=== PATIENT | female | born 1985 | race African-American/Black ===

== ENCOUNTER 2020-05-31 09:53 | Emergency (ER) | payer OTHER ==
[2020-05-31] MEDS ORDERED: CONCCAP2 PO (10:05)
[2020-05-31] MEDS ORDERED: METO5TAB2 PO (10:06)
[2020-05-31 10:54] LABS: HEMATOCRIT 34.5 % (36.0-47.0); HEMOGLOBIN 11.7 g/dl (12.0-15.5); MEAN CORPUSCULAR HEMOGLOBIN 30.9 pg (27.0-33.0); MEAN CORPUSCULAR HGB CONC 33.9 g/dl (32.0-36.5); PLATELET COUNT, AUTOMATED 244 10^3/uL (150-450); RED BLOOD COUNT 3.79 10^6/uL (4.00-5.40); WHITE BLOOD COUNT 5.9 10^3/uL (4.0-10.0)
[2020-05-31] MEDS ORDERED: NS 1,000 ML IV ONE (11:30)
[2020-05-31] MEDS ORDERED: RHOGAM 300 MCG (1500 IU) INJ (J2790) IM ONE (11:45)
--- NOTE | 2020-05-31 11:52 | REP ---
LIMITED OB ULTRASOUND: 05/31/2020. Clinical history: Second trimester vaginal bleeding. Findings: No prior study. There is a single intrauterine gestation in breech position. An anterior right lateral placenta without previa and inferiorly in abruption measuring 3.24 x 3.2 x 0.8 cm. Cervix has a length of 3.2 cm. heart activity noted at 149. The amniotic fluid volume is visually normal. No evidence of a nuchal cord. Impression: 1. Single intrauterine gestation in breech position with heart rate 149 and a closed 3.2 cm long cervix. 2. Anterior right lateral placenta, grade 0 maturation characteristics with placenta previa and an inferior abruption fluid collection 3.4 x 3.2 x 0.8 cm. 3. Amniotic fluid volume visually normal. No evidence of a nuchal cord. Electronically Signed by Azael Correa MD 05/31/2020 11:44 A
[2020-05-31 13:48] VITALS: BP 119/66
--- NOTE | 2020-06-01 06:44 | ED PDOC ---
Post-Departure Follow-Up dr aiken faxed formal report of ob us for fu Kenton Valdovinos MD Jun 01, 2020 06:44
--- NOTE | 2020-06-04 13:20 | ED PDOC ---
Post-Departure Follow-Up Called pt and voicemail left to have her return call. Need patient to come to [facility] to obtain consent for the products of conception sent. Leroy left voicemail to have pt call the hospital back ELISSA HERNANDEZ PA-C Jun 04, 2020 13:20
[2020-08-18 12:46] LABS: CHROMPC1 SEE SEPARATE REPORT
== END 2020-05-31 13:50 | disposition home or self-care (01) ==
LOC: M ED 09:53
DX: O44.12 Complete placenta previa with hemorrhage, second trimester (principal); Z3A.15 15 weeks gestation of pregnancy
CPT/HCPCS: 76815; 80047; 84702; 85027; 86850; 86870; 86901; 88233; 88262; 88291; 96360; 96361; 96372; 99284; J2790

== ENCOUNTER → 2020-06-11 | Outpatient (CLI) | payer OTHER ==
[~2020-06-11] MED LIST: CONCCAP2 PO; METO5TAB2 PO
--- NOTE | 2020-06-11 16:36 | REP ---
Clinical: Anatomical evaluation. Comparison: 05/31/2020 . Findings: Examination demonstrates a single live intrauterine in mobile presentation. motion is identified by technologist. Placenta is noted anterior/right lateral and grade zero without evidence for placenta previa or abruption. Amniotic fluid volume is normal. Cervix measures 3.9 cm in length and appears closed. Subchorionic hemorrhage again identified measuring 38 x 21 x 27 mm. Gestational age by LMP 14 weeks 5 days with JINNY 12/05/2020 . Gestational age by current measurements 16 weeks 1 day with JINNY 11/25/2020 . FHR equals 156 beats per minute. Estimated weight by current biometrical measurements 144 grams Impression: 1. Single live intrauterine in mobile presentation with biometrical measurements currently measuring at 16 weeks 1 day gestational age. 2. Moderate subchorionic hemorrhage again identified anterior to the cervix. Electronically Signed by Harshad Ochoa MD 06/11/2020 04:28 P
== END ==
LOC: M WHC 15:15
PROVIDERS: ATTEND Advanced Practice Midwife
DX: O36.80X0 Pregnancy with inconclusive fetal viability, not applicable or unspecified (principal); Z3A.16 16 weeks gestation of pregnancy

== ENCOUNTER → 2020-08-14 | Outpatient (CLI) | payer OTHER ==
[2020-08-14 15:02] LABS: HEMATOCRIT 30.9 % (36.0-47.0); HEMOGLOBIN 10.1 g/dl (12.0-15.5); MEAN CORPUSCULAR HEMOGLOBIN 32.2 pg (27.0-33.0); MEAN CORPUSCULAR HGB CONC 32.7 g/dl (32.0-36.5); MEAN CORPUSCULAR VOLUME 98.4 fl (80.0-96.0); PLATELET COUNT, AUTOMATED 240 10^3/uL (150-450); RED BLOOD COUNT 3.14 10^6/uL (4.00-5.40)
== END ==
LOC: M LAB 13:15
PROVIDERS: ATTEND Obstetrics & Gynecology
DX: Z34.02 Encounter for supervision of normal first pregnancy, second trimester (principal); Z3A.00 Weeks of gestation of pregnancy not specified

== ENCOUNTER → 2020-10-21 | Outpatient (REF) | payer OTHER ==
[~2020-10-21] MED LIST changes: +ACET-907 PO
== END ==
LOC: M LAB REF 11:58
PROVIDERS: ATTEND Obstetrics & Gynecology
DX: Z34.83 Encounter for supervision of other normal pregnancy, third trimester (principal); Z3A.00 Weeks of gestation of pregnancy not specified

== ENCOUNTER 2020-10-26 17:51 | Outpatient (CLI) | payer OTHER ==
[~2020-10-26] VITALS: Ht 203.2 cm; Wt 99.1 kg
[~2020-10-26 17:51] MED LIST changes: -ACET-907 PO
[2020-10-26 18:11] VITALS: BP 116/71
[2020-10-26] MEDS ORDERED: ACET-907 PO (18:21)
[2020-10-26] MEDS ORDERED: ACETAMINOPHEN TAB 650MG DOSE (2X325MG) PO ONE (19:00)
[2020-10-26 19:08] VITALS: BP 104/59
[2020-10-26 20:00] VITALS: BP 121/74
[2020-10-26 20:20] LABS: APPEARANCE, URINE CLEAR (CLEAR); BACTERIA, URINE AUTO NEGATIVE (NEGATIVE); BILIRUBIN, URINE AUTO NEGATIVE (NEGATIVE); BLOOD, URINE BLOOD NEGATIVE (NEGATIVE); COLOR, URINE STRAW (YELLOW); GLUCOSE, URINE (UA) AUTO NEGATIVE (NEGATIVE); KETONE, URINE AUTO NEGATIVE (NEGATIVE); LEUKOCYTE ESTERASE, URINE AUTO NEGATIVE (NEGATIVE); NITRITE, URINE AUTO NEGATIVE (NEGATIVE); PROTEIN, URINE AUTO NEGATIVE (NEGATIVE); RBC, URINE AUTO 0 /HPF (0-3); SPECIFIC GRAVITY URINE AUTO 1.003 (1.002-1.035); SQUAMOUS EPITHELIAL CELL UR AU 1 /HPF (0-6); UROBILINOGEN, URINE AUTO 0.2 mg/dL (0.0-2.0); WBC, URINE AUTO 0 /HPF (0-3)
[2020-10-26] MEDS ORDERED: PERCOCET 5MG/325MG TAB PO ONE (20:30)
[2020-10-26 21:02] VITALS: BP 115/70
== END 2020-10-26 21:05 | disposition home or self-care (01) ==
LOC: M LDO 17:51
PROVIDERS: ATTEND Obstetrics & Gynecology
DX: O26.893 Other specified pregnancy related conditions, third trimester (principal); R51.9 Headache, unspecified; Z3A.35 35 weeks gestation of pregnancy

== ENCOUNTER → 2020-11-11 | Outpatient (CLI) | payer OTHER ==
[~2020-11-11] MED LIST changes: +ACET-907 PO
--- NOTE | 2020-11-11 09:36 | REP ---
INDICATION: BREECH PRESENTATION COMPARISON: 06/11/2020 TECHNIQUE: Transabdominal obstetrical ultrasound with color Doppler evaluation. FINDINGS: Examination demonstrates a single live intrauterine in cephalic presentation. motion is identified by technologist. Placenta is noted anterior and grade 3 without evidence for placenta previa or abruption. Amniotic fluid volume is normal. JESSICA: 18.5 cm (7.3-23.9) heart rate: 149 beats per minute Umbilical artery SD ratio: 2.56 (1.55-3.36) IMPRESSION: Single live advanced gestation in cephalic presentation. Amniotic fluid index is within normal limits. <Electronically signed by Harshad Ochoa > 11/11/20 0915
== END ==
LOC: M RAD 08:11
PROVIDERS: ATTEND Obstetrics & Gynecology
DX: O32.1XX0 Maternal care for breech presentation, not applicable or unspecified (principal); Z3A.00 Weeks of gestation of pregnancy not specified

== ENCOUNTER → 2020-11-26 | Outpatient (CLI) | payer OTHER ==
[~2020-11-26] MED LIST changes: +DOK1CAP7 PO; +FERR325T3 PO; +IBUP80TA PO; +PERCOCET PO
== END ==
LOC: M LABSMTC 11:01
PROVIDERS: ATTEND Anesthesiology
DX: Z20.822 Contact with and (suspected) exposure to COVID-19 (principal)

== ENCOUNTER 2020-11-27 06:41 | Inpatient (IN) | payer OTHER ==
[~2020-11-27] VITALS: Ht 157.5 cm; Wt 99.7 kg
[2020-11-27] VITALS (7 sets, daily range): BP systolic 108–126; BP diastolic 57–76
[~2020-11-27 06:41] MED LIST changes: -DOK1CAP7 PO; -FERR325T3 PO; -IBUP80TA PO; -PERCOCET PO; +ceFAZolin SOD 2 GM in IV 1 EA IV ONE
[2020-11-27] MEDS ORDERED: LR 1,000 ML IV SCH (07:30)
[2020-11-27] MEDS ORDERED: BICITRA 30ML SOLN UDC PO ONE (07:30)
[2020-11-27] MEDS ORDERED: LR 1,000 ML IV ONE (07:30)
[2020-11-27 08:16] LABS: HEMATOCRIT 30.2 % (36.0-47.0); HEMOGLOBIN 9.5 g/dl (12.0-15.5); MEAN CORPUSCULAR HEMOGLOBIN 29.3 pg (27.0-33.0); MEAN CORPUSCULAR HGB CONC 31.5 g/dl (32.0-36.5); MEAN CORPUSCULAR VOLUME 93.2 fl (80.0-96.0); PLATELET COUNT, AUTOMATED 233 10^3/uL (150-450); RED BLOOD COUNT 3.24 10^6/uL (4.00-5.40); WHITE BLOOD COUNT 5.5 10^3/uL (4.0-10.0)
[2020-11-27] MEDS ORDERED: ePHEDrine SULFATE 25 MG/5 ML(5MG/ML) SYRINGE As Ordered ONE (09:09)
[2020-11-27] MEDS ORDERED: MORPHINE PRES-FREE INJ 10 MG/10 ML VIAL (J2274) As Ordered ONE (09:09)
[2020-11-27] MEDS ORDERED: OXYTOCIN 30 UNITS IN 0.9% NaCl 500ML IV BAG (J2590) As Ordered ONE ×2 (09:09→10:45)
[2020-11-27] MEDS ORDERED: PHENYLephrine 500MCG 5ML (100MCG/ML) SYRINGE As Ordered ONE (09:09)
[2020-11-27] MEDS ORDERED: KETOROLAC 60MG 2ML VIAL As Ordered ONE (09:17)
[2020-11-27] MEDS ORDERED: ONDANSETRON 4MG/2ML VIAL As Ordered ONE (09:17)
[2020-11-27] MEDS ORDERED: diphenhydrAMINE 50MG/ML VIAL (J1200) IV PRN (09:44)
[2020-11-27] MEDS ORDERED: ONDANSETRON 4MG/2ML VIAL IV PRN ×2 (09:44→10:45)
[2020-11-27] MEDS ORDERED: NALBUPHINE HCL 10 MG/ML AMP (J2300) IV PRN (09:44)
[2020-11-27] MEDS ORDERED: METOCLOPRAMIDE INJ 10MG/2ML VIAL (J2765 PER 1) IV PRN (09:44)
[2020-11-27] MEDS ORDERED: NALOXONE INJ 0.4MG/1ML VIAL (J2310 PER 1MG) IV PRN ×2 (09:44)
[2020-11-27 10:07] LABS: CORD GAS ABE V -2.3; CORD GAS HCO3 V 23.3 MEQ/L; CORD GAS O2 SAT V 88.8 %; CORD GAS PCO2 V 42.7 mmHg; CORD GAS PH V 7.354 UNITS; CORD GAS PO2 V 44.6 mmHg; CORD GAS SBC V 22.4 MEQ/L; CORD GAS TCO2 V 24.6 MEQ/L
[2020-11-27 10:09] LABS: CORD GAS ABE A -6.6; CORD GAS HCO3 A 19.6 MEQ/L; CORD GAS O2 SAT A 70.7 %; CORD GAS PCO2 A 41.6 mmHg; CORD GAS PH A 7.291 UNITS; CORD GAS PO2 A 34.4 mmHg; CORD GAS SBC A 18.6 MEQ/L; CORD GAS TCO2 A 20.9 MEQ/L
[2020-11-27] MEDS ORDERED: OXYTOCIN DRIP 30 UNITS in IV 1 EA IV SCH (10:31)
[2020-11-27] MEDS ORDERED: fentaNYL 100 MCG/2 ML INJECTION (J3010) As Ordered ONE (10:43)
[2020-11-27] MEDS ORDERED: oxyCODONE 5MG TAB PO PRN (10:45)
[2020-11-27] MEDS ORDERED: RHOGAM 300 MCG (1500 IU) INJ (J2790) IM SCH (10:45)
[2020-11-27] MEDS ORDERED: MEASLES,MUMPS,RUBELLA VACCINE INJ (MMR-II) (90707) SC SCH (10:45)
[2020-11-27] MEDS ORDERED: MOM 30ML SUSPENSION UDC PO PRN (10:45)
[2020-11-27] MEDS: fentaNYL 100 MCG/2 ML INJECTION (J3010) IV PRN ×2 (10:45→10:57)
--- NOTE | 2020-11-27 13:35 | RO ---
OPERATIVE NOTE DATE OF OPERATION: 11/27/2020 Mirna is a 35-year-old female who is postdates, refusing an induction. She requested delivery by primary section. PREOPERATIVE DIAGNOSIS: Postdates, requesting primary section. POSTOPERATIVE DIAGNOSIS: Postdates, requesting primary section. PROCEDURE: Primary low transverse section via Pfannenstiel incision. ANESTHESIA: Spinal. SURGEON: Jackson Lowe DO SHIPWRIGHT: Dr. Payne COMPLICATIONS: None. ESTIMATED BLOOD LOSS: 400 mL. FINDINGS: Live male in occiput transverse position, 9/9; weight 8 pounds. Normal-appearing tubes and ovaries. Placenta removed manually. PROCEDURE: After obtaining informed consent, the patient was taken to the operating room. Once spinal anesthetic was found to be adequate, she was then draped and prepped in the usual sterile fashion in the supine position. At this point a Pfannenstiel incision was made, this was carried down to the fascia. The fascia was incised in the midline fashion and carried through laterally. The superior aspect of the fascia was then grasped with a Jah clamp and tented off and dissected off the rectus muscles sharply. The inferior aspect was dissected off in a similar fashion. Rectus muscles were in midline fashion. Peritoneum identified. Peritoneal cavity entered bluntly. Superior and inferior dissection of the peritoneum was then done with good visualization of the bladder. At this point, a Mobius skin retractor was placed. A low transverse uterine incision was made. The infant was delivered in atraumatic fashion. The nose and mouth bulb suctioned, the cord doubly clamped and cut and was handed over to the waiting warmer. Cord blood and cord gas was sent. Placenta removed manually. Uterus cleared of all clots and debris and the uterine incision was then repaired in two separate layers of 0 Vicryl suture. All superficial bleeders coagulated. The skin was reapproximated in subcuticular fashion using 3-0 Vicryl on a Nathaniel. Steri-Strips placed. The patient tolerated the procedure well. She was then transferred to the recovery room in stable condition. cc: [facility]
[2020-11-27] MEDS: KETOROLAC 30 MG/ML 1ML VIAL IV SCH ×2 (16:34→22:29)
[2020-11-27] MEDS: DOCUSATE SODIUM 100MG CAPSULE PO SCH (22:29)
[2020-11-28 02:00] VITALS: BP 108/64
[2020-11-28] MEDS: KETOROLAC 30 MG/ML 1ML VIAL IV SCH ×2 (04:00→04:53)
[2020-11-28 06:00] VITALS: BP 120/75
[2020-11-28] MEDS: IBUPROFEN 800 MG TAB PO SCH ×3 (06:07→21:58)
--- NOTE | 2020-11-28 07:05 | IPNPDOC ---
Progress Note Date of Service: Nov 28, 2020 Day#: 1 Progress Note SUBJECT: Doing well without complaints. Ambulating, has been unable to void. Garcia catheter replaced this morning. Pain is well-controlled. Reports minimal lochia. OBJECTIVE: VITAL SIGNS: Within normal limits, afebrile. Alert and oriented times three. Abdomen: Fundus firm at U-2. Soft, NTTP. Incision: Clean dry intact nonerythematous well approximated Ext: neg calf tenderness. ASSESSMENT: /postoperative day #1 status post delivery. Recovering in stable condition. PLAN: 1. Continue routine /postoperative care 2. Discharge plans for tomorrow VS, I&O, 24H, Fishbone Vital Signs/I&O Vital Signs Date Time Temp Pulse Resp B/P (MAP) Pulse Ox O2 Delivery O2 Flow Rate FiO2 11/28/20 02:00 97.9 87 16 108/64 (79) 99 Room Air I&O- Last 24 Hours up to 6 AM 11/28/20 06:00 Intake Total 1625 ml Output Total 4200 ml Balance -2575 ml Laboratory Data 24H LABS Laboratory Tests 2 11/27/20 07:42: Nucleated Red Blood Cells % (auto) 0.0, Syphilis Serology NONREACTIVE, Hepatitis B Surface Antigen NEGATIVEL 11/27/20 09:58: Cord Arterial Blood pH 7.291, Cord Arterial Blood PCO2 41.6, Cord Arterial Blood PO2 34.4, Cord Arterial Blood HCO3 19.6, Cord Arterial Blood Total CO2 20.9, Cord Arterial Blood Base Excess -6.6, Cord Arterial Base Excess (Standard 18.6, Cord Arterial Bld Oxygen Saturation 70.7, Cord Venous Blood pH 7.354, Cord Venous Blood PCO2 42.7, Cord Venous Blood PO2 44.6, Cord Venous Blood HCO3 23.3, Cord Venous Blood Total CO2 24.6, Cord Venous Base Excess (Actual) -2.3, Cord Venous Base Excess (Standard) 22.4, Cord Venous Blood Oxygen Saturation 88.8 11/27/20 12:35: Serology Scanned Report Hepatitis B Testing CBC/BMP Laboratory Tests 11/27/20 07:42 KIRA NICOLAS MD. Nov 28, 2020 07:05
[2020-11-28] MEDS: DOCUSATE SODIUM 100MG CAPSULE PO SCH ×2 (08:09→21:58)
[2020-11-28] MEDS: PRENATAL VITAMINS CHEWABLE TABLET PO SCH (08:09)
[2020-11-28 08:45] LABS: HEMATOCRIT 26.7 % (36.0-47.0); HEMOGLOBIN 8.3 g/dl (12.0-15.5); MEAN CORPUSCULAR HEMOGLOBIN 30.2 pg (27.0-33.0); MEAN CORPUSCULAR HGB CONC 31.1 g/dl (32.0-36.5); MEAN CORPUSCULAR VOLUME 97.1 fl (80.0-96.0); PLATELET COUNT, AUTOMATED 205 10^3/uL (150-450); RED BLOOD COUNT 2.75 10^6/uL (4.00-5.40); WHITE BLOOD COUNT 9.1 10^3/uL (4.0-10.0)
[2020-11-28 10:00] VITALS: BP 138/63
[2020-11-28] MEDS: PERCOCET 5MG/325MG TAB PO PRN ×2 (12:53→19:44)
[2020-11-28 14:00] VITALS: BP 109/53
[2020-11-28 18:16] VITALS: BP 113/66
[2020-11-28 22:00] VITALS: BP 108/65
[2020-11-29 02:00] VITALS: BP 102/57
[2020-11-29 06:00] VITALS: BP 99/57
[2020-11-29] MEDS: IBUPROFEN 800 MG TAB PO SCH (06:46)
--- NOTE | 2020-11-29 08:10 | IPNPDOC ---
Text Note Date of Service The patient was seen on 11/29/20. NOTE Inpatient Subjective: Mirna is a now who is Postoperative Day #2 after elective Primary C/Section. She is primarily [place] Creole speaking, her S/O translates per her request. Reports having gotten out of bed to ambulate only 2 or 3 times since delivery. Spontaneously voiding without difficulty, passing flatus, and tolerating a regular diet without issue. Reports is not going well and desires more assistance with feeding infant. Reports hot flashes, discussed normal hormonal changes. Reports minimal lochia. Denies persistent headache, visual changes, nausea, chest pain, SOB. Objective: Vital Signs: normotensive, afebrile General: Alert and oriented x3. Respiratory: Regular rate, no accessory muscle use. Abdomen: Tender to touch, incision clean/dry, steri-strips intact. Fundus firm, midline at umbilicus. Extremities: +1 pitting edema, negative clonus, +1 DTRs bilaterally. Assessment: Postoperative Day 2 Plan: 1. Encourage ambulation. 2. support as needed. 3. Percocet and Motrin PRN for pain. 4. Normal nursing care. 5. Discharge home tomorrow. VS,Fishbone, I+O VS, Fishbone, I+O Laboratory Tests 11/28/20 08:14 Vital Signs Date Time Temp Pulse Resp B/P (MAP) Pulse Ox O2 Delivery O2 Flow Rate FiO2 11/29/20 06:00 99.2 83 18 99/57 (71) 100 Room Air I&O- Last 24 Hours up to 6 AM 11/29/20 06:00 Output Total 3250 ml Balance -3250 ml Carmencita Benitez CNM Nov 29, 2020 08:10
[2020-11-29] MEDS: PRENATAL VITAMINS CHEWABLE TABLET PO SCH (08:12)
[2020-11-29] MEDS: DOCUSATE SODIUM 100MG CAPSULE PO SCH (08:12)
[2020-11-29] MEDS: PERCOCET 5MG/325MG TAB PO PRN ×2 (08:13→13:35)
[2020-11-29] MEDS ORDERED: BOOSTRIX/ADACEL VACCINE (DIPHTH/PERTUSS/ACELL/TETANUS) 0.5ML SYR IM ONE (09:00)
--- NOTE | 2020-11-29 11:06 | IPNPDOC ---
Progress Note Date of Service: Nov 29, 2020 Day#: 2 Progress Note POD 2 SUBJECT: Mirna is a 35yo s/p uncomplicated PLTCS on 11/27/20 for post- date refusal of IOL, doing well day # 2. She has been ambulating, voiding spontaneously without issue and tolerating regular diet. Breast and bottle feeding. Reports lochia is minimal. Patient is ambulating well. No f/c/n/v/CP/SOB. OBJECTIVE: VITAL SIGNS: Within normal limits, afebrile. Alert and oriented times three. Abdomen: Fundus firm at U-2. Soft, appropriately tender to palpation. Pfannenstiel incision has steri strips overlying, dry/intact with no erythema/drainage Extremities: trace edema BLE Labs: pre-op H/H 9.5/30.2 post-op H/H 8.3/26.7 ASSESSMENT: Mirna is a 35yo s/p uncomplicated PLTCS on 11/27/20 for post-date refusal of IOL, doing well day # 2. Vitals within normal limits, afebrile, hemodynamically stable with no evidence of infection. Stable H/H. PLAN: 1. Discharge to home today. Patient endorses strong desire to go home. Pain controlled on po pain meds. 2. Percocet and Motrin for pain. 3. Encouraged breast feeding and ambulation. 4. Incision check in [address] Lowe as scheduled 5. Discussed return precautions at length. 6. No heavy lifting, vaginal rest 6 weeks Monica Givens MD VS, I&O, 24H, Fishbone Vital Signs/I&O Vital Signs Date Time Temp Pulse Resp B/P (MAP) Pulse Ox O2 Delivery O2 Flow Rate FiO2 11/29/20 09:40 20 11/29/20 06:00 99.2 83 99/57 (71) 100 Room Air I&O- Last 24 Hours up to 6 AM 11/29/20 06:00 Output Total 3250 ml Balance -3250 ml Monica Givens MD Nov 29, 2020 11:06
--- NOTE | 2020-11-29 11:17 | DS.PDOC ---
Discharge Summary General Date of Admission Nov 27, 2020 at 06:41 Date of Discharge Nov 29, 2020 Attending Physician: Jackson Lowe DO Discharge Summary PROCEDURES PERFORMED DURING STAY: primary low transverse section ADMITTING DIAGNOSES: 1. post-dates refusing IOL DISCHARGE DIAGNOSES: 1. post-dates refusing IOL COMPLICATIONS/CHIEF COMPLAINT: Term , Elective Section. HISTORY OF PRESENT ILLNESS/HOSPITAL COURSE: Mirna is a 35yo s/p uncomplicated PLTCS on 11/27/20 for post-date refusal of IOL, doing well day # 2. She has had a benign /post-op course. At time of discharge, vitals within normal limits, afebrile, hemodynamically stable with no evidence of infection. Stable H/H. DISCHARGE MEDICATIONS: Please see below. ALLERGIES: Please see below. PHYSICAL EXAMINATION ON DISCHARGE: VITAL SIGNS: Within normal limits, afebrile. Alert and oriented times three. Abdomen: Fundus firm at U-2. Soft, appropriately tender to palpation. Pfannenstiel incision has steri strips overlying, dry/intact with no erythema/drainage Extremities: trace edema BLE LABORATORY DATA: Please see below. pre-op H/H 9.5/30.2 post-op H/H 8.3/26.7 ACTIVITY: As tolerated, vaginal rest 6 weeks and no heavy lifting DIET: regular DISPOSITION: home DISCHARGE PLAN/INSTRUCTIONS: 1. Discharge to home today. Patient endorses strong desire to go home. Pain controlled on po pain meds. 2. Percocet and Motrin for pain. 3. Encouraged breast feeding and ambulation. 4. Incision check in [address] Lowe as scheduled 5. Discussed return precautions at length. 6. No heavy lifting, vaginal rest 6 weeks DISCHARGE CONDITION: Stable TIME SPENT ON DISCHARGE: Greater than 20 minutes. Monica Givens MD Vital Signs/I&Os Vital Signs Date Time Temp Pulse Resp B/P (MAP) Pulse Ox O2 Delivery O2 Flow Rate FiO2 11/29/20 09:40 20 11/29/20 06:00 99.2 83 99/57 (71) 100 Room Air I&O- Last 24 Hours up to 6 AM 11/29/20 06:00 Output Total 3250 ml Balance -3250 ml Discharge Medications Scheduled Metoclopramide HCl (Metoclopramide HCl) 5 Mg Tablet, 5 MG PO Q8HP, (Reported) Pnv 16/Iron Fum,Ps/Folic/Om-3 (Concept Dha Capsule) 1 Each Capsule, 1 CAP PO DAILY, (Reported) Miscellaneous Medications Acetaminophen (Tylenol) 325 Mg Tablet, 1,000 MG PO, (Reported) Allergies Coded Allergies: No Known Allergies (Unverified , 05/31/20) Monica Givens MD Nov 29, 2020 11:17
[2020-11-29] MEDS ORDERED: PERCOCET PO (11:26)
[2020-11-29] MEDS ORDERED: DOK1CAP7 PO (11:26)
[2020-11-29] MEDS ORDERED: FERR325T3 PO (11:26)
[2020-11-29] MEDS ORDERED: IBUP80TA PO (11:26)
== END 2020-11-29 14:20 | disposition home or self-care (01) | DRG 540 ==
LOC: M LDI 06:41 → M OBS 11:50
PROVIDERS: ADMIT Obstetrics & Gynecology; ATTEND Obstetrics & Gynecology
PROC: 10D00Z1 Extraction of Products of Conception, Low, Open Approach (ICD-10-PCS; principal; 2020-11-27 09:30)
DX: O48.0 Post-term pregnancy (principal); Z3A.40 40 weeks gestation of pregnancy; Z37.0 Single live birth; O99.824 Streptococcus B carrier state complicating childbirth

== ENCOUNTER → 2025-07-01 | Outpatient (CLI) | payer OTHER ==
[~2025-07-01] MED LIST changes: +DOK1CAP4 PO; +FERR325T3 PO; +IBUP80TA PO; +PERCOCET PO; -ceFAZolin SOD 2 GM in IV 1 EA IV ONE
[2025-07-01 12:52] LABS: PLATELET COUNT, AUTOMATED 265 10^3/uL (150-450)
[2025-07-01 13:00] LABS: ALT/SGPT 14 U/L (7.0-40); AST/SGOT 15 U/L (<34); CALCIUM LEVEL 9.1 MG/DL (8.5-10.1); CARBON DIOXIDE LEVEL 26 MMOL/L (20-31); CHLORIDE LEVEL 107 MMOL/L (98-107); CHOLESTEROL LEVEL 165 MG/DL (<200); CHOLESTEROL RISK RATIO 3.54 (<5); CREATININE FOR GFR 0.76 MG/DL (0.55-1.30); GLOMERULAR FILTRATION RATE > 90.0 (>60); LDL CHOLESTEROL 99.2 MG/DL (<100); NON-HDL-C 118.4 MG/DL; POTASSIUM SERUM 4.2 MMOL/L (3.5-5.1); SODIUM LEVEL 143 MMOL/L (136-145); TRIGLYCERIDES LEVEL 96 MG/DL (<150)
[2025-07-01 13:01] LABS: FREE T4 0.93 NG/DL (0.89-1.76)
[2025-07-01 13:03] LABS: APPEARANCE, URINE HAZY (CLEAR); PROTEIN, URINE AUTO TRACE mg/dL (NEGATIVE); SPECIFIC GRAVITY URINE AUTO 1.020 (1.002-1.035)
[2025-07-01 13:04] LABS: BILIRUBIN, URINE AUTO NEGATIVE (NEGATIVE); BLOOD, URINE BLOOD 2+ (NEGATIVE); GLUCOSE, URINE (UA) AUTO NEGATIVE (NEGATIVE); KETONE, URINE AUTO NEGATIVE (NEGATIVE); LEUKOCYTE ESTERASE, URINE AUTO NEGATIVE (NEGATIVE); NITRITE, URINE AUTO NEGATIVE (NEGATIVE); UROBILINOGEN, URINE AUTO 0.2 mg/dL (0.0-2.0)
[2025-07-01 13:05] LABS: WBC, URINE AUTO 0-3 /HPF (0-3)
[2025-07-01 13:14] LABS: ESTIMATED AVERAGE GLUCOSE 117.0 MG/DL (60-110)
== END ==
LOC: M WUC 09:20
PROVIDERS: ATTEND Physician Assistant
DX: E03.9 Hypothyroidism, unspecified (principal)